=== PATIENT | female | born 1995 | race Caucasian/White ===

== ENCOUNTER 2017-11-21 12:00 | Inpatient (IN) | payer OTHER ==
[2017-11-21] MEDS: DEXTROSE 5%-LACTATED RINGERS 1,000 ML IV SCH (12:00)
[2017-11-21] MEDS ORDERED: BUTORPHANOL TARTRATE 1 MG/ML VIAL ONE ×4 (12:42→16:01)
[2017-11-21] MEDS ORDERED: PROMETHAZINE HCL 25 MG/1 ML VIAL ONE ×2 (12:42→16:01)
[2017-11-21 13:00] VITALS: BMI 29.0
--- NOTE | 2017-11-21 13:10 | HP ---
Past Medical History - Primary Care Physician PCP:: Humza Buitrago - Admission Chief Complaint: 40,4 weeks, labor History of Present Illness: 22 y,o f 40.4 weeks in labor , cx 6 cm 80 vx -1 mi , fhr cat 1, contraction regular, care HRH. no complication History Source: Patient Limitations to Obtaining History: Language Barrier - Past Medical History ...: 1 ...LMP: 02/10/17 ... Weeks Gestation by Dates: 40.4 ...EDC by Dates: 11/17/17 ...EDC by Sono: 11/17/17 - Past Surgical History Hx Myomectomy: No Hx Transabdominal Cerclage: No - Smoking History Smoking history: Never smoked Have you smoked in the past 12 months: No - Alcohol/Substance Use Hx Alcohol Use: No - Social History Usual Living Arrangement: Yes: With Spouse History of Recent Travel: No Home Medications - Allergies Allergies/Adverse Reactions: Allergies Allergy/AdvReac Type Severity Reaction Status Date / Time No Known Allergies Allergy Verified 11/20/17 18:04 - Home Medications Home Medications: Ambulatory Orders Ferrous Sulfate [Iron] 325 mg PO DAILY 11/20/17 Pnv No.95/Ferrous Fum/Folic AC [ Formula] 1 each PO DAILY 11/20/17 Review of Systems - Review of Systems Constitutional: reports: No Symptoms Eyes: reports: No Symptoms HENT: reports: No Symptoms Neck: reports: No Symptoms Cardiovascular: reports: No Symptoms Respiratory: reports: No Symptoms Gastrointestinal: reports: No Symptoms Genitourinary: reports: No Symptoms Breasts: reports: No Symptoms Reported Musculoskeletal: reports: No Symptoms Integumentary: reports: No Symptoms Neurological: reports: No Symptoms Endocrine: reports: No Symptoms Hematology/Lymphatic: reports: No Symptoms Psychiatric: reports: No Symptoms Physical Exam - Maternity Vital Signs: Vital Signs Temperature 98.8 F 11/21/17 12:53 Pulse Rate 81 11/21/17 12:53 Respiratory Rate 18 11/21/17 12:53 Blood Pressure 120/80 11/21/17 12:53 O2 Sat by Pulse Oximetry (%) Constitutional: Yes: Well Nourished, No Distress, Calm Eyes: Yes: WNL, Conjunctiva Clear, EOM Intact HENT: Yes: WNL, Atraumatic, Normocephalic Neck: Yes: WNL, Supple, Trachea Midline Cardiovascular: Yes: WNL, Regular Rate and Rhythm Breast(s): Yes: WNL - Abdominal Exam/OB Fundal Height: 40 Number of Fetuses: Single Presentation: Vertex Contractions: Yes Intensity: Mod/Strong Monitor Mode: External Heart Rate Location: [facility] Category: I Accelerations: Uniform Decelerations: None - Vaginal Exam/OB Vaginal Bleediing: Bloody Show Presentation: Vertex/Position Station: -1 - Physical Exam Musculoskeletal: Yes: WNL Edema: Yes Edema: LLE: Trace, RLE: Trace Deep Tendon Reflex Grade: Normal +2 Hemorrhage Risk Assessment - Risk Factors Medium Risk Factors: Yes: None High Risk Factors: Yes: None Risk Score: 1 Risk Level: Medium Risk Problem List - Problems (1) Post term over 40 weeks Code(s): O48.0 - POST-TERM (2) Labor established Code(s): CNC0300 - Assessment/Plan plan admit, FHM, pain management
[2017-11-21] MEDS ORDERED: PROMETHAZINE HCL 25 MG/1 ML VIAL IVPUSH ONE (13:15)
[2017-11-21] MEDS ORDERED: BUTORPHANOL TARTRATE 1 MG/ML VIAL IVPUSH ONE (13:15)
[2017-11-21] MEDS ORDERED: OXYTOCIN 20 UNITS in 0.9% NS 20 UNIT/1,000 ML INFUS.BAG IV ONE ×3 (13:21→23:09)
--- NOTE | 2017-11-21 13:25 | PN ---
Progress Note (short form) - Note Progress Note: cx 7 cm 80 vx -1 mi arom clear, fhr cat 1 Problem List - Problems (1) Post term over 40 weeks Code(s): O48.0 - POST-TERM (2) Labor established Code(s): [id number] -
[2017-11-21 13:39] LABS: BASO % 0.2 % (0-2.0); EOS % 1.1 % (0-4.5); HEMATOCRIT 37.4 % (32.4-45.2); HEMOGLOBIN 12.7 GM/dL (10.7-15.3); LYMPH % 13.8 % (8-40); MCHC 34.1 g/dl (32.0-36.0); MEAN CELL VOLUME 90.8 fl (80-96); MEAN PLT VOLUME 8.5 fl (7.5-11.1); MONO % 6.8 % (3.8-10.2); NEUT % 78.1 % (42.8-82.8); PLATELET COUNT 230 K/MM3 (134-434); RBC 4.11 M/mm3 (3.60-5.2); RDW 12.7 % (11.6-15.6); WHITE BLOOD COUNT 9.9 K/mm3 (4.0-10.0)
[2017-11-21 13:53] LABS: INR 0.89 (0.82-1.09); PROTHROMBIN TIME (PATIENT) 10.1 SEC (9.98-11.88)
[2017-11-21 13:56] LABS: ACTIVATED PTT 26.8 SECONDS (26.9-34.4)
[2017-11-21 13:58] LABS: ANION GAP 10 (8-16); BLOOD UREA NITROGEN 6 mg/dL (7-18); CALCIUM 8.2 mg/dL (8.5-10.1); CHLORIDE 107 mmol/L (98-107); CO2 23 mmol/L (21-32); CREATININE 0.5 mg/dL (0.55-1.02); GLUCOSE,RANDOM 106 mg/dL (74-106); POTASSIUM 3.6 mmol/L (3.5-5.1); SODIUM 140 mmol/L (136-145)
[2017-11-21] MEDS ORDERED: BUTORPHANOL TARTRATE 1 MG/ML VIAL IVPB ONE (16:30)
[2017-11-21] MEDS ORDERED: PROMETHAZINE HCL 25 MG/1 ML VIAL IVPB ONE (16:30)
[2017-11-21] MEDS ORDERED: ELECTROLYTE-148 SOLN 1,000 ML IV SCH (20:15)
--- NOTE | 2017-11-21 20:15 | PN ---
Progress Note (short form) - Note Progress Note: cx 8 cm,-2 no descent and dilation, fhr cat 1, advised c/s Problem List - Problems (1) Post term over 40 weeks Code(s): O48.0 - POST-TERM (2) Labor established Code(s): [id number] -
[2017-11-21] MEDS ORDERED: ONDANSETRON 4 MG/2 ML VIAL IVPUSH PRN (20:29)
[2017-11-21] MEDS ORDERED: CITRIC ACID/SODIUM CITRATE 30 ML UNIT-DOSE CUP PO ONE (20:30)
[2017-11-21] MEDS ORDERED: morphine SULFATE/Preservative Free 0.5 MG/ML (1cc Syringe) ONE (20:43)
[2017-11-21] MEDS ORDERED: KETOROLAC TROMETHAMINE 30 MG/1 ML VIAL ONE (20:47)
[2017-11-21] MEDS ORDERED: PROPOFOL 20 ML ONE (20:49)
[2017-11-21] MEDS ORDERED: SUCCINYLCHOLINE CHLORIDE 200 MG/10 ML VIAL ONE (20:49)
[2017-11-21] MEDS ORDERED: ePHEDrine SULFATE 50 MG/1 ML AMPULE ONE ×2 (20:49→21:44)
[2017-11-21] MEDS ORDERED: oxyCODONE HCL 5 MG TABLET PO PRN (21:10)
[2017-11-21] MEDS ORDERED: METHYLERGONOVINE MALEATE 0.2 MG/1 ML AMP IM PRN (21:10)
[2017-11-21] MEDS ORDERED: BENZOCAINE 28 GM HEMORRHOIDAL OINTMENT PR PRN (21:10)
[2017-11-21] MEDS ORDERED: IBUPROFEN 800 MG/8 ML IJ IVPB PRN (21:10)
[2017-11-21] MEDS ORDERED: BENZOCAINE 20% 57 GM BOTTLE TP PRN (21:10)
[2017-11-21] MEDS ORDERED: diphenhydrAMINE HCL 25 MG CAPSULE (FP) PO PRN (21:10)
[2017-11-21] MEDS ORDERED: WITCH HAZEL 50% (TUCKS) 40 PAD/JAR PAD TP PRN (21:10)
[2017-11-21] MEDS ORDERED: DEXTROSE 5%-LACTATED RINGERS 1,000 ML IV SCH (21:15)
[2017-11-21] MEDS ORDERED: OXYTOCIN 20 UNITS in 0.9% NS 20 UNIT/1,000 ML INFUS.BAG IV SCH (21:15)
[2017-11-22] MEDS: CEFAZOLIN 1 GM PUSH 1 GM/10 ML DISP.SYRIN IVPUSH SCH ×2 (05:04→12:14)
[2017-11-22] MEDS: DEXTROSE 5%-LACTATED RINGERS 1,000 ML IV SCH (08:14)
--- NOTE | 2017-11-22 08:18 | PN ---
Progress Note (short form) - Note Progress Note: Post op day#1.S/p C Section under spinal anesthesia with duramorph uneventful Patient stable and c/o little pain for which she is on medication.No any anesthesia related problem.Patient DC from the anesthesia care.
[2017-11-22 09:22] LABS: BASO % 0.3 % (0-2.0); EOS % 0.3 % (0-4.5); HEMATOCRIT 30.7 % (32.4-45.2); HEMOGLOBIN 10.3 GM/dL (10.7-15.3); LYMPH % 12.5 % (8-40); MCH 30.7 pg (25.7-33.7); MCHC 33.6 g/dl (32.0-36.0); MEAN CELL VOLUME 91.4 fl (80-96); MEAN PLT VOLUME 8.3 fl (7.5-11.1); MONO % 9.2 % (3.8-10.2); NEUT % 77.7 % (42.8-82.8); PLATELET COUNT 193 K/MM3 (134-434); RBC 3.35 M/mm3 (3.60-5.2); RDW 13.2 % (11.6-15.6); WHITE BLOOD COUNT 16.3 K/mm3 (4.0-10.0)
[2017-11-22] MEDS ORDERED: FLU VACC QS2017-18 36MOS UP/PF 60 MCG/0.5 ML SYRINGE IM ONE (10:00)
--- NOTE | 2017-11-22 16:30 | PN ---
Progress Note (short form) - Note Progress Note: pod 1 .s/p primary c/s , doing well, CBC, BMP 11/22/17 08:00 11/21/17 13:15 Last Vital Signs Temp Pulse Resp BP Pulse Ox 98.4 F 96 H 18 104/47 99 11/22/17 13:00 11/22/17 13:00 11/22/17 16:00 11/22/17 13:00 11/21/17 22:45 abdomen soft, no distension, no cva incision dry, clean no calf tenderness urine clear plan ambulate, advance diet, pain management Problem List - Problems (1) Post term over 40 weeks Code(s): O48.0 - POST-TERM (2) Labor established Code(s): [id number] -
[2017-11-22] MEDS: IBUPROFEN 600 MG TABLET (FP) PO PRN (20:35)
[2017-11-22] MEDS: SIMETHICONE 80 MG TAB.CHEW (FP) PO PRN (20:35)
[2017-11-22] MEDS: ACETAMINOPHEN 325 MG TABLET (FP) PO PRN (20:35)
[2017-11-22] MEDS ORDERED: BISACODYL 10 MG SUPP.RECT PR PRN (21:10)
[2017-11-22] MEDS: SENNOSIDES/DOCUSATE COMBO (SENNA PLUS) TABLET (UD) PO PRN (21:21)
[2017-11-23] MEDS: SIMETHICONE 80 MG TAB.CHEW (FP) PO PRN ×4 (01:56→22:03)
[2017-11-23] MEDS: IBUPROFEN 600 MG TABLET (FP) PO PRN ×4 (01:56→22:06)
[2017-11-23] MEDS: oxyCODONE HCL 5 MG TABLET PO PRN ×4 (01:57→22:05)
--- NOTE | 2017-11-23 09:38 | PN ---
Progress Note (short form) - Note Progress Note: pod 2 ,doing well, passing gas, ambulating CBC, BMP 11/22/17 08:00 11/21/17 13:15 Last Vital Signs Temp Pulse Resp BP Pulse Ox 99 F 85 20 121/68 99 11/22/17 20:41 11/22/17 20:41 11/22/17 21:27 11/22/17 20:41 11/21/17 22:45 abdomen soft, no distension, no cva incision dry, clean no calf tenderness pod 2 afebrile plan cbc in am , pain management ambulate Problem List - Problems (1) Post term over 40 weeks Code(s): O48.0 - POST-TERM (2) Labor established Code(s): [id number] -
[2017-11-23] MEDS ORDERED: FLU VACC QS2017-18 36MOS UP/PF 60 MCG/0.5 ML SYRINGE IM ONE (10:00)
[2017-11-23] MEDS ORDERED: DIPHTH,PERTUSS(ACELL),TET 0.5 ML DISP.SYRIN IM ONE (10:00)
[2017-11-23] MEDS: SENNOSIDES/DOCUSATE COMBO (SENNA PLUS) TABLET (UD) PO PRN (22:00)
[2017-11-24 09:03] LABS: BASO % 0.3 % (0-2.0); EOS % 2.8 % (0-4.5); HEMATOCRIT 29.8 % (32.4-45.2); LYMPH % 13.3 % (8-40); MCH 30.9 pg (25.7-33.7); MCHC 33.7 g/dl (32.0-36.0); MEAN CELL VOLUME 91.6 fl (80-96); MEAN PLT VOLUME 8.2 fl (7.5-11.1); MONO % 7.3 % (3.8-10.2); NEUT % 76.3 % (42.8-82.8); PLATELET COUNT 196 K/MM3 (134-434); RBC 3.25 M/mm3 (3.60-5.2); RDW 13.1 % (11.6-15.6); WHITE BLOOD COUNT 11.5 K/mm3 (4.0-10.0)
--- NOTE | 2017-11-24 09:39 | OP ---
DATE OF OPERATION: 11/21/2017 PREOPERATIVE DIAGNOSIS: 40.4 weeks gestation labor, failure to dilate and descent. POSTOPERATIVE DIAGNOSIS: at 40.4 weeks gestation labor, failure to dilate and descent, occiput, posterior. PROCEDURE: Primary low segment transverse section. SURGEON: True Buitrago MD SLOT ATTENDANT: LEO Bledsoe ANESTHESIA: Spinal. ANESTHESIOLOGIST: Ahsan Rudd MD ESTIMATED BLOOD LOSS: 500 mL OPERATION: The patient was taken to the operating room and under adequate spinal anesthesia, abdomen and perineum was prepped and draped. A Pfannenstiel abdominal skin incision was made. Abdominal wall was cut [id number] until the peritoneum was exposed and incised. Upon entering the abdominal cavity, no retained segment was identified and the uterovesical fold of peritoneum established. Bladder was pushed down. Then with the lower blade of the [place] retractor in the pelvis, a low transverse uterine incision was made and the incision extended laterally. Amniotic sac was entered, clear fluid. The head was in direct occiput posterior position and delivered without any difficulty. Nasopharynx was suctioned. A live baby was delivered. The placenta was delivered manually. The uterine cavity was cleared of all remaining tissue. Uterine incision was closed in 2 layers, the first layer with 0 Vicryl in continuous suture, the second layer with 0 Vicryl embricating the first layer. Bladder flap was closed with 0 Biosyn continuous suture. Both tubes and ovaries were checked, were normal, no active bleeding was seen. All the lap, sponge and instrument count were correct and the peritoneum was closed with 0 Biosyn continuous suture. Muscles were brought together with interrupted suture of 0 Biosyn. Fascia was closed with 0 Biosyn continuous suture. Subcutaneous fat with interrupted suture of 0 Biosyn and the skin was closed with deni. Patient tolerated the procedure well, left the OR in good condition. TRUE BUITRAGO M.D. [id number]
--- NOTE | 2017-11-24 10:38 | PN ---
Post Progress Note - Subjective Subjective: c/o pain at op site scale 8-9/10 Post Day: 3 Type of Delivery: Primary C/S Vital Signs: Vital Signs Temperature 97.9 F 11/23/17 22:00 Pulse Rate 83 11/23/17 22:00 Respiratory Rate 18 11/23/17 22:00 Blood Pressure 123/71 11/23/17 22:00 O2 Sat by Pulse Oximetry (%) 99 11/21/17 22:45 Breast Exam: Yes: Soft. No: Engorged Uterus: Yes: Fundus Firm, Fundus below umbilicus Incision: Yes: Zenaida intact. No: Redness, Oozing Abdomen/GI: Yes: Tender, Passing flatus (bm not done ), Tolerating PO ( tolerating diet ). No: Abdominal Distention Lochia: Yes: Rubra Lochia, amount: Moderate Extremities: Yes: Calves non-tender Perineum: Yes: Intact Activity: Ambulating - Labs Labs: CBC WBC 11.5 K/mm3 (4.0-10.0) H 11/24/17 08:00 RBC 3.25 M/mm3 (3.60-5.2) L 11/24/17 08:00 Hgb 10.0 GM/dL (10.7-15.3) L 11/24/17 08:00 Hct 29.8 % (32.4-45.2) L 11/24/17 08:00 MCV 91.6 fl (80-96) 11/24/17 08:00 MCH 30.9 pg (25.7-33.7) 11/24/17 08:00 MCHC 33.7 g/dl (32.0-36.0) 11/24/17 08:00 RDW 13.1 % (11.6-15.6) 11/24/17 08:00 Plt Count 196 K/MM3 (134-434) 11/24/17 08:00 MPV 8.2 fl (7.5-11.1) 11/24/17 08:00 Neutrophils % 76.3 % (42.8-82.8) 11/24/17 08:00 Lymphocytes % 13.3 % (8-40) 11/24/17 08:00 Monocytes % 7.3 % (3.8-10.2) 11/24/17 08:00 Eosinophils % 2.8 % (0-4.5) D 11/24/17 08:00 Basophils % 0.3 % (0-2.0) 11/24/17 08:00 Assessment/Plan stable plan ct po care
[2017-11-24] MEDS: oxyCODONE HCL 5 MG TABLET PO PRN ×2 (10:42→19:55)
[2017-11-24] MEDS: SIMETHICONE 80 MG TAB.CHEW (FP) PO PRN ×2 (10:42→19:54)
[2017-11-24] MEDS: IBUPROFEN 600 MG TABLET (FP) PO PRN ×2 (10:43→19:54)
[2017-11-25] MEDS: IBUPROFEN 600 MG TABLET (FP) PO PRN (08:54)
[2017-11-25] MEDS: ACETAMINOPHEN 325 MG TABLET (FP) PO PRN (08:55)
[2017-11-25] MEDS: SIMETHICONE 80 MG TAB.CHEW (FP) PO PRN (08:56)
[2017-11-25 10:49] VITALS: BP 118/68; PULSE 98; TEMP 98.4
--- NOTE | 2017-11-25 14:46 | DS ---
Physical Exam-FURNACE CHARGER Vital Signs: Vital Signs Temperature 98.4 F 11/25/17 10:00 Pulse Rate 98 H 11/25/17 10:00 Respiratory Rate 20 11/25/17 10:00 Blood Pressure 118/68 11/25/17 10:00 O2 Sat by Pulse Oximetry (%) 99 11/21/17 22:45 Constitutional: Yes: Well Nourished, No Distress, Calm Eyes: Yes: WNL, Conjunctiva Clear, EOM Intact HENT: Yes: WNL, Atraumatic, Normocephalic Neck: Yes: WNL, Supple, Trachea Midline Cardiovascular: Yes: WNL, Regular Rate and Rhythm Respiratory: Yes: WNL, Regular, CTA Bilaterally Gastrointestinal: Yes: WNL ...Rectal Exam: Yes: WNL Renal/: Yes: WNL ....Post : Yes: Uterus firm, Uterus non-tender, Slight lochia rubra Breast(s): Yes: WNL Musculoskeletal: Yes: WNL Extremities: Yes: WNL Integumentary: Yes: WNL Wound/Incision: Yes: Clean/Dry, Well Approximated, [place] Intact Neurological: Yes: WNL, Alert, Oriented ...Motor Strength: WNL Psychiatric: Yes: WNL, Alert, Oriented Labs: CBC, BMP 11/24/17 08:00 11/21/17 13:15 Delivery - Delivery Section: Primary (no complication), Low Flap Transverse Type of Anesthesia: Spinal Episiotomy/Laceration: None EBL (cc): 500 Delivery, Single - Stages of Labor Date 1st Stage Initiatied: 11/21/17 Time 1st Stage Initiated: 12:00 Date of Delivery: 11/21/17 Time of Delivery: 21:27 Time Placenta Delivered: 21:28 Placenta: Yes: Expressed - Condition of Infant Training Director/Barrel Coater Present: [place]: Sindhu Perez Gender: Male Weight: 6 lb 15 oz Position: OA Total Hours ROM (Hrs/Mins): 8hrs.13mins - 1 Minute Total Score: 9 5 Minutes Total Score: 9 - Feeding Plan Initial Plan: Elected not to breastfeed exclusively throughout hospitalization Discharge Summary Reason For Visit: LABOR ADMIT Current Active Problems Labor established (Acute) Post term over 40 weeks (Acute) Status post primary low transverse section (Acute) Procedures: Principal: primary lst c/s Hospital Course: uneventful Condition: Good - Instructions Diet, Activity, Other Instructions: Regular diet No driving, no lifting x 4 weeks F/U in clinic for deni removal in one week Disposition: HOME - Home Medications Comprehensive Discharge Medication List: Ambulatory Orders Ferrous Sulfate [Iron] 325 mg PO DAILY 11/20/17 Pnv No.95/Ferrous Fum/Folic AC [ Formula] 1 each PO DAILY 11/20/17 Ibuprofen [Motrin -] 600 mg PO Q4H PRN #30 tablet 11/25/17
--- NOTE | 2017-11-26 13:50 | PATH ---
Surgical Pathology Report Patient Name: GAYLE WILL Med. Rec. #: [id number] /Age/Gender: 1995 (Age: 22) / F Account: [id number] Location: [facility] OBS/CRITICAL CARE TECHNICIAN Taken: 11/21/2017 Received: 11/22/2017 Reported: 11/26/2017 Physicians: Humza Buitrago M.D. Specimen(s) Received PLACENTA Clinical History , 40.4 weeks gestation, post dates, failure to progress Final Diagnosis PLACENTA, SECTION: 478 G THIRD TRIMESTER PLACENTA WITH TRIVASCULAR UMBILICAL CORD, FOCAL INTRAPARENCHYMAL INFARCT (~15% OF PLACENTAL SURFACE), AND UNREMARKABLE PLACENTAL MEMBRANES. Electronically Signed Mary Anne Ward M.D. Gross Description The specimen is received fresh labeled placenta and is a 478 gram, 15.0 x 15.0 x 3.2 cm. placenta with attached membranes and umbilical cord. The attached membranes are martinez, translucent with focal opacities and insert marginally. The umbilical cord measures 28 cm. in length and averages 1.3 cm. in diameter. The cord inserts eccentrically, 3.5 cm. to the nearest margin. No true knots or strictures are identified. Cut surface of the umbilical cord reveals 3 vessels. The surface is yo-blue with minimal fibrin deposition and appropriate caliber vessels. The maternal surface is red-brown with focal defects. Sectioning reveals a 2.3 cm in greatest dimension intraparenchymal lesion. The remaining placental parenchyma is red-brown and spongy. Fitting Room Supervisor sections are submitted in 4 cassettes as follows: 1-membrane roll and umbilical cord; 2-lesion; 3-4-full thickness sections of placenta. 11/24/2017 saudi11/24/2017
== END 2017-11-25 15:00 | disposition home or self-care (01) | DRG 540 ==
LOC: JDEL 12:00 → JLDR 12:20 → J3W 11-22 00:01
PROVIDERS: ADMIT Obstetrics & Gynecology; ATTEND Obstetrics & Gynecology
PROC: 10D00Z1 Extraction of Products of Conception, Low, Open Approach (ICD-10-PCS; principal; 2017-11-21)
DX: O48.0 Post-term pregnancy (principal); O62.1 Secondary uterine inertia; O32.4XX0 Maternal care for high head at term, not applicable or unspecified; Z3A.40 40 weeks gestation of pregnancy; Z37.0 Single live birth
CPT/HCPCS: 36415; 80048; 82962; 85025; 85610; 85730; 86593; 86850; 86900; 86901; 88307-TC; 90686; 90715

== ENCOUNTER → 2020-01-18 | Day surgery (SDC) | payer OTHER ==
[2020-01-16 13:59] VITALS: BMI 22.8
[~2020-01-18] MED LIST: ACETAMINOPHEN 325 MG TABLET (FP) ONE; ACETAMINOPHEN 500 MG TABLET (FP) PO PRN; DEXAMETHASONE SOD PHOSPHATE 4 MG/1 ML VIAL ONE; KETOROLAC TROMETHAMINE 30 MG/1 ML VIAL ONE; LACTATED RINGERS SOLUTION 1,000 ML IV SCH; LIDOCAINE HCL/PF 2% SDV 5ML VIAL ONE; MIDAZOLAM HCL 2 MG/2 ML SINGLE DOSE VIAL ONE; ONDANSETRON 4 MG/2 ML VIAL IVPUSH PRN; PROPOFOL 20 ML ONE; oxyCODONE HCL 5 MG TABLET PO PRN
--- NOTE | 2020-01-18 07:56 | HP ---
Admitting History and Physical - Admission Chief Complaint: Abnormal History of Present Illness: 24 y0, with missed , is pre op for suction D&C. History Source: Patient Limitations to Obtaining History: No Limitations - Past Medical History ...LMP: 10/21/19 ...: 2 ...Para: 1 - Past Surgical History Past Surgical History: Yes: None - Smoking History Smoking history: Never smoked Have you smoked in the past 12 months: No - Alcohol/Substance Use Hx Alcohol Use: No - Social History Usual Living Arrangement: Yes: With Significant Other History of Recent Travel: No Home Medications - Allergies Allergies/Adverse Reactions: Allergies Allergy/AdvReac Type Severity Reaction Status Date / Time No Known Allergies Allergy Verified 01/18/20 07:26 - Home Medications Home Medications: Ambulatory Orders NK [No Known Home Medication] 01/16/20 Family Medical History Family History: Unremarkable Review of Systems - Review of Systems Constitutional: reports: No Symptoms Eyes: reports: No Symptoms HENT: reports: No Symptoms Neck: reports: No Symptoms Cardiovascular: reports: No Symptoms Respiratory: reports: No Symptoms Gastrointestinal: reports: No Symptoms Genitourinary: reports: No Symptoms Breasts: reports: No Symptoms Reported Musculoskeletal: reports: No Symptoms Neurological: reports: No Symptoms Psychiatric: reports: No Symptoms Pain Intensity: 2 Physical Examination Vital Signs: Vital Signs Temperature 97.5 F L 01/18/20 07:24 Pulse Rate 69 01/18/20 07:24 Respiratory Rate 16 01/18/20 07:24 Blood Pressure 105/71 01/18/20 07:24 O2 Sat by Pulse Oximetry (%) 99 01/18/20 07:24 Constitutional: Yes: Well Nourished Eyes: Yes: Conjunctiva Clear HENT: Yes: Atraumatic Neck: Yes: Supple Cardiovascular: Yes: Regular Rate and Rhythm Respiratory: Yes: Regular Gastrointestinal: Yes: Normal Bowel Sounds Musculoskeletal: Yes: WNL Extremities: Yes: WNL Neurological: Yes: Alert, Oriented ...Motor Strength: WNL Psychiatric: Yes: Alert, Oriented Assessment/Plan Missed Pre op for suction D&C Consent sighed Anesthesia to see patient
--- NOTE | 2020-01-18 08:22 | OP ---
Operative Note - Note: Operative Date: 01/18/20 Pre-Operative Diagnosis: Missed Operation: Suction D&C Findings: Product of conception Post-Operative Diagnosis: Same as Pre-op Surgeon: Padmini Asif Anesthesia: General Specimens Removed: POC Estimated Blood Loss (mls): 20 Operative Report Dictated: Yes
--- NOTE | 2020-01-18 09:41 | OP ---
DATE OF OPERATION: 01/18/2020 PREOPERATIVE DIAGNOSIS: Missed . POSTOPERATIVE DIAGNOSIS: Missed . PROCEDURE: Suction dilatation and curettage. SURGEON: Padmini Asif MD ANESTHESIA: General. COMPLICATIONS: None. ESTIMATED BLOOD LOSS: 20 mL. DESCRIPTION OF PROCEDURE: Patient was taken to the operating room where general anesthesia was administered. Patient was then placed in lithotomy position. She was then prepped and draped in proper sterile fashion. A weighted speculum was placed in the vagina. The anterior lip of the cervix was grasped with single-tooth tenaculum. Then, the cervix was then sequentially dilated with Bella dilators. Then, a 9-mm suction curette was then gently introduced into the uterine cavity. The suction curette was rotated to clear the uterus of all products of conception. Initial curettage was performed. The curette was then re-introduced to clear the uterus of all remaining products of conception. Then, the instruments were removed. The patient was taken out of lithotomy position. She was taken to PACU in stable condition. PATHOLOGY: Products of conception. Rima [id number]
[2020-01-18 09:44] VITALS: TEMP 97.9
[2020-01-18 10:05] VITALS: BP 111/57; PULSE 58
--- NOTE | 2020-01-19 17:45 | PATH ---
Surgical Pathology Report Patient Name: GAYLE WILL Med. Rec. #: [id number] /Age/Gender: 1995 (Age: 24) / F Account: [id number] Location: [facility] SURGICAL Taken: 01/18/2020 Received: 01/18/2020 Reported: 01/19/2020 Physicians: Padmini Asif M.D. Specimen(s) Received PRODUCTS OF CONCEPTION Clinical History Missed Final Diagnosis PRODUCTS OF CONCEPTION TO: CHORIONIC VILLI PRESENT, CONSISTENT WITH PRODUCTS OF CONCEPTION. RESULTS FOR CHROMOSOMAL STUDY PENDING. AN ADDENDUM REPORT TO FOLLOW. Electronically Signed Selam Hart M.D. Gross Description Received fresh labeled "products of conception for chromosomal and genetic studies," is a 10.0 x 6.5 x 0.8 cm aggregate of martinez red soft tissue fragments. Villous tissue is identified. No definitive somatic tissue is identified. A asset protection representative portion is placed in RPMI solution and sent for chromosomal analysis. An additional asset protection representative portion of villous tissue is submitted in one cassette. /01/18/2020 saudi/01/18/2020
== END | disposition home or self-care (01) ==
LOC: JASU-SURG 04:55
PROVIDERS: ATTEND Obstetrics & Gynecology
PROC: 0UDB7ZX Extraction of Endometrium, Via Natural or Artificial Opening, Diagnostic (ICD-10-PCS; principal; 2020-01-18 08:30)
DX: O02.1 Missed abortion (principal)